=== PATIENT | male | born 1985 | race Caucasian/White ===

== ENCOUNTER 2022-05-07 19:13 | Emergency (ER) | payer BC ==
[~2022-05-07] VITALS: Ht 170.2 cm; Wt 90.7 kg
--- NOTE | 2022-05-07 19:30 | NUR ---
Dr. Gold assessing pt.
--- NOTE | 2022-05-07 19:35 | NUR ---
Pt placed to [facility].
--- NOTE | 2022-05-07 19:40 | NUR ---
Pt report received. Pt c/o Left lower abdominal pain with nausea x 2 days.
--- NOTE | 2022-05-07 19:50 | NUR ---
# 20 gauge angiocath placed to LAC. Use of asceptic technique. Opsite placed over site. Blood return noted. Blood for lab drawn from site. Flushed with 10 cc of normal saline. No evidence of infiltration noted. Patient tolerated well.
[2022-05-07 19:51] VITALS: BP_SYST 115
[2022-05-07] MEDS ORDERED: ONDANSETRON HCL 4 MG/2 ML VIAL IVP ONE ×2 (20:00→21:45)
[2022-05-07] MEDS ORDERED: MORPHINE 4 MG INJ. 4 MG/ML VIAL IVP ONE ×2 (20:00→21:45)
[2022-05-07] MEDS ORDERED: NACL 0.9% 1,000 ML IV ONE ×2 (20:00→21:45)
[2022-05-07 20:22] LABS: BASOPHILS % (AUTO) 0.5 % (0.0-2.0); EOSINOPHILS # (AUTO) 0.1 K/uL (0.0-0.4); EOSINOPHILS % (AUTO) 0.7 % (0.0-4.0); HEMATOCRIT 46.6 % (36-54); HEMOGLOBIN 16.2 g/dL (14.0-18.0); LYMPHOCYTES # (AUTO) 1.3 K/uL (1.0-5.5); LYMPHOCYTES % (AUTO) 13.4 % (20.5-51.5); MEAN CORPUSCULAR HEMOGLOBIN 31 pg (27-31); MEAN CORPUSCULAR HGB CONC 35 % (32-36); MEAN CORPUSCULAR VOLUME 88 fL (79.0-98.0); MONOCYTES # (AUTO) 0.6 K/uL (0.0-1.0); MONOCYTES % (AUTO) 5.9 % (1.7-9.3); NEUTROPHILS # (AUTO) 7.5 K/uL (1.8-7.7); NEUTROPHILS % (AUTO) 79.5 % (40.0-70.0); PLATELET COUNT (AUTO) 178 K/uL (130-430); RED BLOOD CELL COUNT(AUTO) 5.31 MIL/uL (4.2-6.2); RED CELL DISTRIBUTION WIDTH 13.3 % (9.0-15.0); WHITE BLOOD COUNT (AUTO) 9.5 K/uL (4.8-10.8)
[2022-05-07 20:27] LABS: CALCIUM 9.4 mg/dL (8.4-11.0); CREATININE 1.07 mg/dL (0.55-1.30)
[2022-05-07 20:43] LABS: ALBUMIN 3.9 g/dL (3.4-4.8); TOTAL BILIRUBIN 0.9 mg/dL (0.0-1.0)
[2022-05-07] MEDS ORDERED: metroNIDAZOLE 500 mg/NS 100 ML IV ONE (21:45)
[2022-05-07] MEDS ORDERED: LEVO-62 PO (21:50)
[2022-05-07] MEDS ORDERED: DICL75TA5 PO (21:50)
[2022-05-07] MEDS ORDERED: METR-154 PO (21:50)
--- NOTE | 2022-05-07 22:00 | NUR ---
Resting quietly, NAD.
[2022-05-08 00:10] VITALS: BP_SYST 122
--- NOTE | 2022-05-08 00:10 | NUR ---
Patient given written and verbal discharge instructions and verbalizes understanding. ER MD discussed with patient the results and treatment provided. Patient in stable condition. ID arm band removed. IV catheter removed intact and dressing applied, no active bleeding. Rx of Levaquin and Voltaren given. Patient educated on pain management and to follow up with PMD. Pain Scale 3/10. Opportunity for questions provided and answered. Medication side effect fact sheet provided.
== END 2022-05-08 00:10 | disposition home or self-care (01) ==
LOC: SED 19:13
DX: K57.92 Diverticulitis of intestine, part unspecified, without perforation or abscess without bleeding (principal); R10.32 Left lower quadrant pain; R11.0 Nausea; F17.200 Nicotine dependence, unspecified, uncomplicated; Z88.1 Allergy status to other antibiotic agents; Z79.899 Other long term (current) drug therapy
CPT/HCPCS: 99284; 74176; 96365; 96375; 96367; 80053; 83690; 85025; 84484; 36415; 76376; 96376; J1956; J3490; J2405; J2270